=== PATIENT | female | born 1985 | race Two or more races ===

== ENCOUNTER 2016-08-18 13:26 | Inpatient (IN) | payer BC ==
[~2016-08-18] VITALS: Ht 167.6 cm; Wt 97.1 kg
[2016-08-19 11:53] VITALS: BP 132/60
[2016-08-19] MEDS ORDERED: LIDOCAINE 1% PF 30 ML VIAL. INJ PRN (12:15)
[2016-08-19] MEDS ORDERED: 0.9 % SODIUM CHLORIDE 10 ML DISP.SYRIN. IV PRN (12:15)
[2016-08-19] MEDS ORDERED: TERBUTALINE 1 MG/ML VIAL. SQ PRN (12:15)
[2016-08-19] MEDS ORDERED: FENTANYL PF 100 MCG/2 ML VIAL. IV PRN (12:15)
[2016-08-19] MEDS ORDERED: OXYTOCIN 30 UNIT/500 ML PREMIX 500 ML IV PRN (12:15)
[2016-08-19] MEDS ORDERED: BUTORPHANOL 2 MG VIAL. IV PRN (12:15)
[2016-08-19] MEDS ORDERED: DINOPROSTONE 10 MG SUPP.VAG VG ONE ×2 (12:15→20:00)
[2016-08-19 12:25] LABS: HEMATOCRIT 33.7 % (36.0-47.0); HEMOGLOBIN 11.1 g/dL (12.0-15.5); RED BLOOD COUNT 4.12 x10^6/uL (3.50-5.40); RED CELL DISTRIBUTION WIDTH 14.3 % (11.5-14.5); WHITE BLOOD COUNT 8.1 x10^3/uL (4.0-11.0)
[2016-08-19] MEDS: IV RINGERS,LACTATED 1000ML 1,000 ML IV SCH ×2 (12:47→19:07)
[2016-08-20] MEDS ORDERED: OXYTOCIN 30 UNIT/500 ML PREMIX 500 ML IV PRN ×2 (06:00→23:15)
[2016-08-20] MEDS: IV RINGERS,LACTATED 1000ML 1,000 ML IV SCH ×2 (06:02→10:00)
--- NOTE | 2016-08-20 07:27 | PDOC1 ---
OB - History Hx of Present Care: Good Care Ultrasounds: Normal mid trimester US Obstetrical Complications: None Medical Complications: None Past Family/Social History * Past Medical, Surgical, Family and Obstetric Histories reviewed from chart. Rubella: Immune RPR/VDRL: Negative GBS Status: Negative HBsAG: Negative OB - Chief Complaint & HPI Date of Admission: Date of Admission: Aug 19, 2016 at 10:54 Chief Complaint/History : 4 Para: 2 EGA: 40 Reason for admission: induction of labor Indication for induction: post dates Admission Nurse Assessment Rev: Yes Problems: OB - Admission Exam Physical Exam Vitals: VS - Last 72 Hours, by Label Date Time Temp Pulse Resp B/P Pulse Ox O2 Delivery O2 Flow Rate FiO2 08/19/16 11:53 97.9 76 20 132/60 97.9 HEENT: Normal Heart: Regular Rate Lungs: Clear Abdomen: Gravid, Non tender, Soft Extremities: Edema Reflexes: Normal Cervical Dilatation: 1cm Effacement: 50% Station: -3 Membranes: Intact Heart Rate: Normal Accelerations: Accelerations Present Decelerations: No decelerations Contractions on Admission: None Text A: 40 wks IUP IOL post P: Admit for IOL with cervidil, then pitocin in am. She was provided cervidil during the day and then again over night. GINGER HERNANDEZ Jr, MD Aug 20, 2016 07:27
[2016-08-20] MEDS ORDERED: L&D EPIDURAL CASSETTE 100 ML EP ONE ×2 (09:52→17:51)
[2016-08-20] MEDS ORDERED: ROPIVacaine 0.2% IN 0.9%NACL PF 40 MG/20 ML DISP.SYRIN. ONE (09:52)
--- NOTE | 2016-08-20 23:03 | PDOC ---
VAGINAL DELIVERY DATE DATE: 08/20/16 TIME: 23:02 : 4 Para: 2 EGA: 39 VAGINAL DELIVERY: VTX VACCUM ASSISTED: No PLACENTA: Spontaneous 8/9 SEX: Male WEIGHT Weight [2620 gm ] Nuchal Cord: No Amniotic Fluid: Clear PAIN: Epidural EPISIOTOMY: No EXTENSION: No EBL 300 ml COMPLICATIONS none CONDITION pt. stable Signs of Intrauterine Infectio: None Shoulder Dystocia: No Problems: GINGER HERNANDEZ Jr, MD Aug 20, 2016 23:03
[2016-08-20] MEDS ORDERED: MAGNESIUM HYDROXIDE 2,400 MG/30 ML ORAL.SUSP. PO PRN (23:15)
[2016-08-20] MEDS ORDERED: 0.9 % SODIUM CHLORIDE 10 ML DISP.SYRIN. IV PRN (23:15)
[2016-08-20] MEDS ORDERED: HYDROCORTISONE 1% TOPICAL OINTMENT 30GM TUBE. TP PRN (23:15)
[2016-08-20] MEDS ORDERED: BENZOCAINE 20% TOPICAL AEROSOL SPRAY 57GM CAN. TP PRN (23:15)
[2016-08-20] MEDS ORDERED: OXYCODONE/APAP 5/325 TABLET. PO PRN (23:15)
[2016-08-20] MEDS ORDERED: ZOLPIDEM 5 MG TABLET. PO PRN (23:15)
[2016-08-20] MEDS ORDERED: MAG HYDROX/ALUMINUM HYD/SIMETH 30 ML ORAL.SUSP PO PRN (23:15)
[2016-08-20] MEDS ORDERED: MMR per PROTOCOL. MC PRN (23:15)
[2016-08-20] MEDS ORDERED: DOCUSATE SODIUM 100 MG CAPSULE PO PRN (23:15)
[2016-08-20] MEDS ORDERED: IBUPROFEN 800 MG TABLET. PO PRN (23:15)
[2016-08-20] MEDS ORDERED: SIMETHICONE 80 MG TAB.CHEW PO PRN (23:15)
[2016-08-20] MEDS ORDERED: DIPHENHYDRAMINE HCL 25 MG CAPSULE PO PRN (23:15)
[2016-08-20] MEDS ORDERED: PHENYLEPH/MINERAL OIL/PETROLAT RECTAL OINTMENT 28GM TUBE. RC PRN (23:15)
[2016-08-20] MEDS ORDERED: ACETAMINOPHEN 325 MG TABLET. PO PRN (23:15)
[2016-08-21 02:30] VITALS: BP 107/64
[2016-08-21 05:06] LABS: BASO % 0 % (0-3); EOS % 0 % (0-3); HEMATOCRIT 32.6 % (36.0-47.0); HEMOGLOBIN 10.5 g/dL (12.0-15.5); LYMPH # 1.5 x10^3/uL (1.0-4.8); LYMPH % 10 % (24-48); MEAN CORPUSCULAR HEMOGLOBIN 26 pg (25-35); MEAN CORPUSCULAR HGB CONC 32 g/dL (31-37); MEAN CORPUSCULAR VOLUME 82 fL (79-100); MONO % 7 % (0-9); NEUT % 82 % (31-73); PLATELET COUNT 209 x10^3/uL (140-400); RED BLOOD COUNT 3.98 x10^6/uL (3.50-5.40); RED CELL DISTRIBUTION WIDTH 14.6 % (11.5-14.5); WHITE BLOOD COUNT 14.4 x10^3/uL (4.0-11.0)
[2016-08-21] MEDS: IBUPROFEN 800 MG TABLET. PO PRN (06:30)
[2016-08-21 06:36] VITALS: BP 124/74
[2016-08-21] MEDS ORDERED: FERROUS SULFATE 325 MG TABLET PO SCH (08:00)
[2016-08-21 10:40] VITALS: BP 118/66
--- NOTE | 2016-08-21 17:39 | PDOC ---
OB Progress Note Date of Service 08/21/16 Time of Evaluation 1735 Notes Pt. feeling well. Pain controlled. Breast feeding without difficulty. Lochia minimal. Lab Laboratory Tests Test 08/21/16 04:35 White Blood Count 14.4x10^3/uL (4.0-11.0) Red Blood Count 3.98x10^6/uL (3.50-5.40) Hemoglobin 10.5g/dL (12.0-15.5) Hematocrit 32.6% (36.0-47.0) Mean Corpuscular Volume 82fL (79-100) Mean Corpuscular Hemoglobin 26pg (25-35) Mean Corpuscular Hemoglobin Concent 32g/dL (31-37) Red Cell Distribution Width 14.6% (11.5-14.5) Platelet Count 209x10^3/uL (140-400) Neutrophils (%) (Auto) 82% (31-73) Lymphocytes (%) (Auto) 10% (24-48) Monocytes (%) (Auto) 7% (0-9) Eosinophils (%) (Auto) 0% (0-3) Basophils (%) (Auto) 0% (0-3) Neutrophils # (Auto) 11.9x10^3uL (1.8-7.7) Lymphocytes # (Auto) 1.5x10^3/uL (1.0-4.8) Monocytes # (Auto) 1.0x10^3/uL (0.0-1.1) Eosinophils # (Auto) 0.0x10^3/uL (0.0-0.7) Basophils # (Auto) 0.0x10^3/uL (0.0-0.2) Laboratory Tests Test 08/21/16 04:35 White Blood Count 14.4x10^3/uL (4.0-11.0) Red Blood Count 3.98x10^6/uL (3.50-5.40) Hemoglobin 10.5g/dL (12.0-15.5) Hematocrit 32.6% (36.0-47.0) Mean Corpuscular Volume 82fL (79-100) Mean Corpuscular Hemoglobin 26pg (25-35) Mean Corpuscular Hemoglobin Concent 32g/dL (31-37) Red Cell Distribution Width 14.6% (11.5-14.5) Platelet Count 209x10^3/uL (140-400) Neutrophils (%) (Auto) 82% (31-73) Lymphocytes (%) (Auto) 10% (24-48) Monocytes (%) (Auto) 7% (0-9) Eosinophils (%) (Auto) 0% (0-3) Basophils (%) (Auto) 0% (0-3) Neutrophils # (Auto) 11.9x10^3uL (1.8-7.7) Lymphocytes # (Auto) 1.5x10^3/uL (1.0-4.8) Monocytes # (Auto) 1.0x10^3/uL (0.0-1.1) Eosinophils # (Auto) 0.0x10^3/uL (0.0-0.7) Basophils # (Auto) 0.0x10^3/uL (0.0-0.2) Medications Current Medications Sodium Chloride 3 ml 3 ml QSHIFT PRN IV AFTER MEDS AND BLOOD DRAWS; Start 08/19 at 12:15; Stop 08/21/16 at 08:56; Status DC Lactated Ringer's (Iv Lactated Ringers) 1,000 ml @ 125 mls/hr Q8H IV Last administered on 08/20/16t 10:00; Start 08/19/16 at 12:02; Stop 08/21/16 at 08:56 ; Status DC Butorphanol Tartrate (Stadol) 2 mg PRN Q1HR PRN IV Severe labor pain; Start at 12:15; Stop 08/21/16 at 08:56; Status DC Fentanyl Citrate (Fentanyl 2ml Vial) 100 mcg PRN Q30MIN PRN IV Severe pain; Start 08/19/16 at 12:15; Stop 08/21/16 at 08:56; Status DC Terbutaline Sulfate (Brethine) 0.25 mg 1X PRN PRN SQ SEE COMMENTS; Start at 12:15; Stop 08/20/16 at 12:14; Status DC Lidocaine HCl 30 ml 30 ml 1X PRN PRN INJ SEE COMMENTS; Start 08/19/16 at 12:15 ; Stop 08/21/16 at 08:56; Status DC Oxytocin/Sodium Chloride 500 ml @ 0 mls/hr CONT PRN IV SEE I/O RECORD Last administered on 08/20/16 07:33; Start 08/20/16 at 06:00; Stop 08/21/16 at 08:56 ; Status DC Oxytocin/Sodium Chloride (Oxytocin Premix Infusion) 500 ml @ 0 mls/hr CONT PRN PRN IV Post delivery bleeding; Start 08/19/16 at 12:15; Stop 08/21/16 at 08:56; Status DC Ibuprofen (Motrin) 800 mg PRN Q6HRS PRN PO PAIN Last administered on 08/21/16 06:30; Start 08/19/16 at 12:15 Dinoprostone (Cervidil) 10 mg 1X ONCE VG Last administered on 08/19/16 12:47 ; Start 08/19/16 at 12:15; Stop 08/19/16 at 12:19; Status DC Dinoprostone 10 mg 10 mg 1X ONCE VG Last administered on 08/19/16 20:19; Start 08/19/16 at 20:00; Stop 08/19/16 at 20:01; Status DC Ropivacaine/ Fentanyl/NS (Zgiulads-Vnrkt-ES 3 Mcg-0.1%) 100 ml @ As Directed STK-MED ONCE EP Last administered on 08/20/16 10:02; Start 08/20/16 at 09:52; Stop 08/21/16 at 08:56; Status DC Ropivacaine 40 mg 40 mg STK-MED ONCE .ROUTE Last administered on 08/20/16 10: 01; Start 08/20/16 at 09:52; Stop 08/21/16 at 08:56; Status DC Ropivacaine/ Fentanyl/NS (Zpvivbxd-Ofdju-NV 3 Mcg-0.1%) 100 ml @ As Directed STK-MED ONCE EP ; Start 08/20/16 at 17:51; Stop 08/21/16 at 08:56; Status DC Sodium Chloride 10 ml 10 ml QSHIFT PRN IV AFTER MEDS AND BLOOD DRAWS; Start at 23:15; Stop 08/21/16 at 08:56; Status DC Oxytocin/Sodium Chloride (Oxytocin Premix Infusion) 500 ml @ 62.5 mls/hr CONT PRN IV SEE I/O RECORD; Start 08/20/16 at 23:15; Stop 08/21/16 at 07:14; Status DC Acetaminophen (Tylenol) 650 mg PRN Q6HRS PRN PO MILD PAIN / TEMP; Start at 23:15 Ibuprofen (Motrin) 800 mg PRN Q8HRS PRN PO INFLAMMATION/PAIN PREVENTION; Start 08/20/16 at 23:15 Docusate Sodium (Colace) 100 mg PRN BID PRN PO CONSTIPATION; Start 08/20/16 at 23:15 Magnesium Hydroxide (Milk Of Magnesia) 2,400 mg PRN DAILY PRN PO CONSTIPATION; Start 08/20/16 at 23:15 Al Hydroxide/Mg Hydroxide (Mylanta Plus Xs) 30 ml PRN Q4HRS PRN PO HEARTBURN / GAS; Start 08/20/16 at 23:15 Simethicone (Gas-X) 80 mg PRN AFTMEALHC PRN PO GAS / BLOATING; Start 08/20/16 at 23:15 Diphenhydramine HCl (Benadryl) 25 mg PRN Q6HRS PRN PO ITCHING; Start 08/20/16 at 23:15 Benzocaine (Americaine) 1 spray PRN QID PRN TP TOPICAL PAIN; Start 08/20/16 at 23:15 Phenyleph/Shark Oil/Min Oil/Petrol (Preparation H) 1 kelsey PRN QID PRN RC RECTAL PAIN; Start 08/20/16 at 23:15 Hydrocortisone (Cortaid) 1 kelsey PRN QID PRN TP PERINEAL PAIN; Start 08/20/16 at 23:15 Ferrous Sulfate (Feosol) 325 mg BIDWMEALS PO ; Start 08/21/16 at 08:00; Stop at 08:56; Status DC Zolpidem Tartrate (Ambien) 5 mg PRN QHS PRN PO INSOMNIA, MAY REPEAT X1; Start 08/20/16 at 23:15 Info (Do NOT chart on this placeholder) 1 ea 1X PRN PRN MC SEE COMMENTS; Start 08/20/16 at 23:15; Stop 08/21/16 at 08:56; Status DC Info (Do NOT chart on this placeholder) 1 ea 1X PRN PRN MC SEE COMMENTS; Start 08/20/16 at 23:15; Stop 3/16/17 at 08:56; Status DC Oxycodone/ Acetaminophen (Percocet 5/325) 2 tab PRN Q4HRS PRN PO MODERATE PAIN , SEVERE PAIN; Start 08/20/16 at 23:15 Exam Abd: soft, non tender, fundus firm Assessment PPD#1 s/p Plan of Care: Continue current Tx, Mgmt GINGER HERNANDEZ Jr, MD Aug 21, 2016 17:39
[2016-08-21 17:42] VITALS: BP 128/78
[2016-08-21 23:10] VITALS: BP 120/63
[2016-08-22 06:18] VITALS: BP 114/69
--- NOTE | 2016-08-22 07:42 | PDOC ---
OB Progress Note Date of Service 08/22/17 Time of Evaluation 0740 Notes Pt. feeling well. Pain controlled. No complaints. Lab Laboratory Tests Test 08/21/16 04:35 White Blood Count 14.4x10^3/uL (4.0-11.0) Red Blood Count 3.98x10^6/uL (3.50-5.40) Hemoglobin 10.5g/dL (12.0-15.5) Hematocrit 32.6% (36.0-47.0) Mean Corpuscular Volume 82fL (79-100) Mean Corpuscular Hemoglobin 26pg (25-35) Mean Corpuscular Hemoglobin Concent 32g/dL (31-37) Red Cell Distribution Width 14.6% (11.5-14.5) Platelet Count 209x10^3/uL (140-400) Neutrophils (%) (Auto) 82% (31-73) Lymphocytes (%) (Auto) 10% (24-48) Monocytes (%) (Auto) 7% (0-9) Eosinophils (%) (Auto) 0% (0-3) Basophils (%) (Auto) 0% (0-3) Neutrophils # (Auto) 11.9x10^3uL (1.8-7.7) Lymphocytes # (Auto) 1.5x10^3/uL (1.0-4.8) Monocytes # (Auto) 1.0x10^3/uL (0.0-1.1) Eosinophils # (Auto) 0.0x10^3/uL (0.0-0.7) Basophils # (Auto) 0.0x10^3/uL (0.0-0.2) Medications Current Medications Sodium Chloride 3 ml 3 ml QSHIFT PRN IV AFTER MEDS AND BLOOD DRAWS; Start 08/19 at 12:15; Stop 08/21/16 at 08:56; Status DC Lactated Ringer's (Iv Lactated Ringers) 1,000 ml @ 125 mls/hr Q8H IV Last administered on 08/20/16t 10:00; Start 08/19/16 at 12:02; Stop 08/21/16 at 08:56 ; Status DC Butorphanol Tartrate (Stadol) 2 mg PRN Q1HR PRN IV Severe labor pain; Start at 12:15; Stop 08/21/16 at 08:56; Status DC Fentanyl Citrate (Fentanyl 2ml Vial) 100 mcg PRN Q30MIN PRN IV Severe pain; Start 08/19/16 at 12:15; Stop 08/21/16 at 08:56; Status DC Terbutaline Sulfate (Brethine) 0.25 mg 1X PRN PRN SQ SEE COMMENTS; Start at 12:15; Stop 08/20/16 at 12:14; Status DC Lidocaine HCl 30 ml 30 ml 1X PRN PRN INJ SEE COMMENTS; Start 08/19/16 at 12:15 ; Stop 08/21/16 at 08:56; Status DC Oxytocin/Sodium Chloride 500 ml @ 0 mls/hr CONT PRN IV SEE I/O RECORD Last administered on 08/20/16 07:33; Start 08/20/16 at 06:00; Stop 08/21/16 at 08:56 ; Status DC Oxytocin/Sodium Chloride (Oxytocin Premix Infusion) 500 ml @ 0 mls/hr CONT PRN PRN IV Post delivery bleeding; Start 08/19/16 at 12:15; Stop 08/21/16 at 08:56; Status DC Ibuprofen (Motrin) 800 mg PRN Q6HRS PRN PO PAIN Last administered on 08/21/16 06:30; Start 08/19/16 at 12:15 Dinoprostone (Cervidil) 10 mg 1X ONCE VG Last administered on 08/19/16 12:47 ; Start 08/19/16 at 12:15; Stop 08/19/16 at 12:19; Status DC Dinoprostone 10 mg 10 mg 1X ONCE VG Last administered on 08/19/16 20:19; Start 08/19/16 at 20:00; Stop 08/19/16 at 20:01; Status DC Ropivacaine/ Fentanyl/NS (Vaumjbph-Fiwac-AZ 3 Mcg-0.1%) 100 ml @ As Directed STK-MED ONCE EP Last administered on 08/20/16 10:02; Start 08/20/16 at 09:52; Stop 08/21/16 at 08:56; Status DC Ropivacaine 40 mg 40 mg STK-MED ONCE .ROUTE Last administered on 08/20/16 10: 01; Start 08/20/16 at 09:52; Stop 08/21/16 at 08:56; Status DC Ropivacaine/ Fentanyl/NS (Wuoyiqme-Boerh-MM 3 Mcg-0.1%) 100 ml @ As Directed STK-MED ONCE EP ; Start 08/20/16 at 17:51; Stop 08/21/16 at 08:56; Status DC Sodium Chloride 10 ml 10 ml QSHIFT PRN IV AFTER MEDS AND BLOOD DRAWS; Start at 23:15; Stop 08/21/16 at 08:56; Status DC Oxytocin/Sodium Chloride (Oxytocin Premix Infusion) 500 ml @ 62.5 mls/hr CONT PRN IV SEE I/O RECORD; Start 08/20/16 at 23:15; Stop 08/21/16 at 07:14; Status DC Acetaminophen (Tylenol) 650 mg PRN Q6HRS PRN PO MILD PAIN / TEMP; Start at 23:15 Ibuprofen (Motrin) 800 mg PRN Q8HRS PRN PO INFLAMMATION/PAIN PREVENTION; Start 08/20/16 at 23:15 Docusate Sodium (Colace) 100 mg PRN BID PRN PO CONSTIPATION; Start 08/20/16 at 23:15 Magnesium Hydroxide (Milk Of Magnesia) 2,400 mg PRN DAILY PRN PO CONSTIPATION; Start 08/20/16 at 23:15 Al Hydroxide/Mg Hydroxide (Mylanta Plus Xs) 30 ml PRN Q4HRS PRN PO HEARTBURN / GAS; Start 08/20/16 at 23:15 Simethicone (Gas-X) 80 mg PRN AFTMEALHC PRN PO GAS / BLOATING; Start 08/20/16 at 23:15 Diphenhydramine HCl (Benadryl) 25 mg PRN Q6HRS PRN PO ITCHING; Start 08/20/16 at 23:15 Benzocaine (Americaine) 1 spray PRN QID PRN TP TOPICAL PAIN; Start 08/20/16 at 23:15 Phenyleph/Shark Oil/Min Oil/Petrol (Preparation H) 1 kelsey PRN QID PRN RC RECTAL PAIN; Start 08/20/16 at 23:15 Hydrocortisone (Cortaid) 1 kelsey PRN QID PRN TP PERINEAL PAIN; Start 08/20/16 at 23:15 Ferrous Sulfate (Feosol) 325 mg BIDWMEALS PO ; Start 08/21/16 at 08:00; Stop at 08:56; Status DC Zolpidem Tartrate (Ambien) 5 mg PRN QHS PRN PO INSOMNIA, MAY REPEAT X1; Start 08/20/16 at 23:15 Info (Do NOT chart on this placeholder) 1 ea 1X PRN PRN MC SEE COMMENTS; Start 08/20/16 at 23:15; Stop 08/21/16 at 08:56; Status DC Info (Do NOT chart on this placeholder) 1 ea 1X PRN PRN MC SEE COMMENTS; Start 08/20/16 at 23:15; Stop 08/21/16 at 08:56; Status DC Oxycodone/ Acetaminophen (Percocet 5/325) 2 tab PRN Q4HRS PRN PO MODERATE PAIN , SEVERE PAIN; Start 08/20/16 at 23:15 Exam Abd: soft, non tender, fundus firm Assessment PPD# 2 s/p Plan of Care: See new orders (D/c home) GNIGER HERNANDEZ Jr, MD Aug 22, 2016 07:42
--- NOTE | 2016-08-22 07:42 | DISCH ---
DISCHARGE INSTRUCTIONS Condition on Discharge Condition on Discharge: Stable Activity After Discharge Activity Instructions for Disc: Activity as tolerated Lifting Instructions after Dis: No heavy lifting Driving Instructions after Dis: Do not drive today Diet after Discharge Diet after Discharge: Regular Contacting the DRJuan Alberto after DC Call your doctor for: Concerns you may have Follow-Up Follow up with: Dr. Booth in 6 weeks. GINGER BOOTH Jr, MD Aug 22, 2016 07:42
[2016-08-22] MEDS ORDERED: IBUP-1060 PO (07:43)
[2016-08-22] MEDS: IBUPROFEN 800 MG TABLET. PO PRN (09:14)
[2016-08-22 10:48] VITALS: BP 119/65
[2016-08-22 12:45] VITALS: BP 109/47
== END 2016-08-22 12:55 | disposition home or self-care (01) | DRG 775 ==
LOC: 3 SO LND 08-19 10:54 → OBSVTOIN 08-19 10:54 → 3 NORTH 08-21 02:06
PROVIDERS: ADMIT Obstetrics & Gynecology; ATTEND Obstetrics & Gynecology
PROC: 10E0XZZ Delivery of Products of Conception, External Approach (ICD-10-PCS; principal; 2016-08-20)
PROC: 3E0S3CZ (ICD-10-PCS; 2016-08-20)
PROC: 00HU33Z Insertion of Infusion Device into Spinal Canal, Percutaneous Approach (ICD-10-PCS; 2016-08-20)
DX: O48.0 Post-term pregnancy (principal); Z37.0 Single live birth; Z3A.40 40 weeks gestation of pregnancy
CPT/HCPCS: 36415; 85027; 86593; 86850; 86900; 86901; G0378; J2590; J2795; J7120